=== PATIENT | male | born 1970 | race Caucasian/White ===

== ENCOUNTER 2019-08-01 14:13 | Emergency (ER) | payer OTHER ==
[~2019-08-01] VITALS: Ht 180.3 cm; Wt 70.2 kg
[~2019-08-01 14:13] MED LIST: ERYT1OIN6 BOTH EYES; FLUO60SO12 TOP; KETO120S5 TOP
[2019-08-01 14:57] VITALS: BP 137/77; PULSE 90; RESP 18; Ht 180.3 cm; Wt 70.2 kg
== END 2019-08-01 15:16 | disposition home or self-care (01) ==
LOC: FTE 14:13 → E/R 15:16
DX: R21 Rash and other nonspecific skin eruption (principal)
CPT/HCPCS: 99283